=== PATIENT | female | born 1975 | race African-American/Black ===

== ENCOUNTER 2016-10-21 21:30 | Emergency (ER) | payer OTHER ==
[~2016-10-21] VITALS: Ht 165.1 cm; Wt 93.9 kg
[~2016-10-21 21:30] MED LIST: ABILIFY10 MG PO; ACETAMINOPHEN500 MG PO; ADVAIR HFA120 INHALA IH; ALBUTEROL SULF8.5 GM IH; ALBUTEROL0.63 MG/3 IH; ALPRAZOLAM2 MG PO; ATARAX,VISTARIL25 MG PO; ATARAX,VISTARIL50 MG PO; AVENTYL,PAMELOR10 MG PO; BACTRIM,SEPT1 TABLET PO; BENTYL20 MG PO; BUSPAR15 MG PO; BUTALB-APAP-CA1 EACH PO; CALCIUM 500 MG1 EACH PO; CELEBREX200 MG PO; CIPRO500 MG PO; CYMBALTA20 MG PO; CYMBALTA30 MG PO; DAILY VALUE1 EACH PO; DAILY VITE1 EAC1 PO; DILAUDID2 MG PO; DURAGESIC50 MCG TD; DURAGESIC75 MCG TD; ENDOCET 5-3251 EACH PO; FAMOTIDINE20 MG PO; FENTANYL1 EAC1 TD; FENTANYL1 EAC5 TD; FIORICET 50-301 EACH PO; FIORICET,ESG1 TABLET PO; FLEXERIL10 MG PO; FLOVENT 11120 INHALA IH; FLUOXETINE HCL40 MG PO; GABAPENTIN300 MG PO; KEFLEX500 MG PO; KLONOPIN1 MG PO; KRISTALOSE20 GM PO; LEVAQUIN750 MG PO; LIDODERM 5% P1 PATCH TD; MEDROL DOSEPAK4 MG PO; MORPHINE SULFAT15 M1 PO; MULTI-VITAMIN1 EAC4 PO; NAPROSYN-EC 37375 MG PO; NORCO 5/3251 TABLET PO; OXYCODONE HCL10 MG PO; OXYCODONE HCL5 MG PO; PAROXETINE HCL40 MG PO; PAXIL2 MG/ML PO; PAXIL40 MG PO; PERCOCET 10/1 TABLET PO; PERCOCET 5/31 TABLET PO; PHENERGAN-CODE120 ML PO; PRAZOSIN HCL1 MG PO; PREDNISONE10 MG PO; PREDNISONE20 MG PO; PROAIR HFA8.5 GM IH; PROVENTIL HFA6.7 GM IH; PROVENTIL,2.5 MG/3 M IH; PROVENTIL2.5 MG/3 M IH; PROZAC40 MG PO; ROBITUSSIN AC,T10 ML PO; ROXICODONE5 MG PO; TESSALON200 MG PO; THERAGRAN1 TABLET PO; TUMS500 MG PO; TYLENOL WITH C1 EACH PO; Tums,OsCal PO; VALIUM10 MG PO; VALIUM2 MG PO; VALIUM5 MG PO; VENTOLIN HFA18 GM IH; VITAMIN A A1 CAPSULE PO; VITAMIN D5000 UNIT PO; XANAX0.25 MG PO; XANAX2 MG PO; ZANTAC150 MG PO; ZANTAC300 MG PO; ZITHROMAX TRI-500 MG PO; ZITHROMAX Z-PA250 MG PO; ZOFRAN ODT4 MG PO; ZOFRAN ODT8 MG PO; ZOFRAN4 MG PO; ZOLPIDEM TARTRA10 MG PO; [UNRECOGNIZED DRUG - SUPPLY]
[2016-10-21 23:15] LABS: HEMATOCRIT 30.9 % (36.0-46.0); MCH 27.5 PG (29.0-34.0); MCHC 30.7 G/DL (30.0-36.0); MCV 89.3 FL (83-99); MEAN PLAT.VOLUME 10.3 uM^3 (9.5-12.4); PLATELET COUNT 326 K/uL (156-360); RBC DIS.WIDTH-CV 17.2 % (11.8-14.6); RBC DIS.WIDTH-SD 54.7 % (39-53); RED BLOOD COUNT 3.46 M/uL (3.80-5.20); WHITE BLOOD COUNT 8.7 K/uL (4.1-10.2)
[2016-10-21 23:22] LABS: CHLORIDE 113 mEq/L (99-109); POTASSIUM 4.2 mEq/L (3.7-5.4); SODIUM 139 mEq/L (136-147)
[2016-10-21 23:24] LABS: GLUCOSE 84 mg/dL (70-99)
[2016-10-21 23:26] LABS: ANION GAP 7 MEQ/L (2-14)
[2016-10-21 23:28] LABS: GFR ESTIMATE (CALCULATED) > 59 mL/min/
[2016-10-21 23:29] LABS: UREA NITROGEN (BUN) 7 mg/dL (9-23)
[2016-10-22] MEDS ORDERED: PREDNISONE10 MG PO (00:06)
[2016-10-22] MEDS ORDERED: VENTOLIN HFA18 GM IH (00:11)
[2016-10-22 00:31] VITALS: BP 119/75
== END 2016-10-22 00:33 | disposition home or self-care (01) ==
LOC: EXP 21:30 → EME 21:30 → EXP 10-22 00:33
PROVIDERS: Emergency Medicine
DX: J45.901 Unspecified asthma with (acute) exacerbation (principal); D64.9 Anemia, unspecified
CPT/HCPCS: 71020; 80048; 85027; 87502; 94640; 99281; 99285; J1100; J3475; J7030

== ENCOUNTER 2016-11-09 20:14 | Emergency (ER) | payer OTHER ==
[~2016-11-09] VITALS: Ht 160 cm; Wt 91.8 kg
[2016-11-09] MEDS ORDERED: FIORICET 50-301 EACH PO (21:51)
[2016-11-09 23:15] VITALS: BP 127/66
== END 2016-11-09 22:40 | disposition home or self-care (01) ==
LOC: EME 20:14
DX: G43.909 Migraine, unspecified, not intractable, without status migrainosus (principal); J45.909 Unspecified asthma, uncomplicated; G89.29 Other chronic pain; M17.0 Bilateral primary osteoarthritis of knee; F32.9 Major depressive disorder, single episode, unspecified; F41.9 Anxiety disorder, unspecified; Z98.84 Bariatric surgery status; Z96.652 Presence of left artificial knee joint; Z98.890 Other specified postprocedural states
CPT/HCPCS: 99281; 99284

== ENCOUNTER 2017-02-23 17:50 | Emergency (ER) | payer OTHER ==
[~2017-02-23] VITALS: Ht 160 cm; Wt 89.3 kg
[2017-02-23 20:42] VITALS: BP 123/76
== END 2017-02-23 20:43 | disposition home or self-care (01) ==
LOC: EME 17:50
DX: M25.561 Pain in right knee (principal); M25.562 Pain in left knee; Z96.652 Presence of left artificial knee joint; G89.29 Other chronic pain; M54.9 Dorsalgia, unspecified; M25.511 Pain in right shoulder
CPT/HCPCS: 73564; 99281; 99283; J1885

== ENCOUNTER 2017-03-29 18:39 | Emergency (ER) | payer OTHER ==
[~2017-03-29] VITALS: Ht 160 cm; Wt 85.3 kg
[2017-03-29] MEDS ORDERED: AMBIEN10 MG PO (18:51)
[2017-03-29] MEDS ORDERED: RIZATRIPTAN10 MG PO (18:52)
[2017-03-29 19:17] LABS: HEMATOCRIT 31.2 % (36.0-46.0); MCH 27.1 PG (29.0-34.0); MCHC 31.4 G/DL (30.0-36.0); MCV 86.2 FL (83-99); MEAN PLAT.VOLUME 9.9 uM^3 (9.5-12.4); PLATELET COUNT 268 K/uL (156-360); RBC DIS.WIDTH-CV 15.4 % (11.8-14.6); RBC DIS.WIDTH-SD 48.4 % (39-53); RED BLOOD COUNT 3.62 M/uL (3.80-5.20); WHITE BLOOD COUNT 12.8 K/uL (4.1-10.2)
[2017-03-29 19:28] LABS: CHLORIDE 111 mEq/L (99-109); POTASSIUM 3.7 mEq/L (3.7-5.4); SODIUM 136 mEq/L (136-147)
[2017-03-29 19:30] LABS: GLUCOSE 100 mg/dL (70-99)
[2017-03-29 19:31] LABS: ANION GAP 7 MEQ/L (2-14)
[2017-03-29 19:33] LABS: GFR ESTIMATE (CALCULATED) > 59 mL/min/
[2017-03-29 19:34] LABS: UREA NITROGEN (BUN) 4 mg/dL (9-23)
[2017-03-29 19:54] VITALS: BP 112/88
== END 2017-03-29 19:57 | disposition home or self-care (01) ==
LOC: EME 18:39
PROVIDERS: Physician Assistant Medical
DX: F11.23 Opioid dependence with withdrawal (principal); R55 Syncope and collapse; R51 Headache; R11.0 Nausea; R19.7 Diarrhea, unspecified; G89.29 Other chronic pain; Z96.652 Presence of left artificial knee joint; Z98.84 Bariatric surgery status; J45.909 Unspecified asthma, uncomplicated
CPT/HCPCS: 80048; 85027; 93005; 99281; 99284; J3010

== ENCOUNTER 2017-04-22 20:14 | Emergency (ER) | payer OTHER ==
[~2017-04-22] VITALS: Ht 160 cm; Wt 89.4 kg
[~2017-04-22 20:14] MED LIST changes: +AMBIEN10 MG PO; +RIZATRIPTAN10 MG PO
[2017-04-22 21:23] LABS: HEMATOCRIT 29.4 % (36.0-46.0); MCH 27.5 PG (29.0-34.0); MCHC 30.6 G/DL (30.0-36.0); MCV 89.9 FL (83-99); MEAN PLAT.VOLUME 9.6 uM^3 (9.5-12.4); PLATELET COUNT 317 K/uL (156-360); RBC DIS.WIDTH-CV 16.4 % (11.8-14.6); RBC DIS.WIDTH-SD 54.2 % (39-53); RED BLOOD COUNT 3.27 M/uL (3.80-5.20); WHITE BLOOD COUNT 9.3 K/uL (4.1-10.2)
[2017-04-22 21:34] LABS: CHLORIDE 111 mEq/L (99-109); POTASSIUM 4.2 mEq/L (3.7-5.4); SODIUM 136 mEq/L (136-147)
[2017-04-22 21:36] LABS: GLUCOSE 78 mg/dL (70-99)
[2017-04-22 21:37] LABS: ANION GAP 6 MEQ/L (2-14)
[2017-04-22 21:40] LABS: GFR ESTIMATE (CALCULATED) > 59 mL/min/; UREA NITROGEN (BUN) 6 mg/dL (9-23)
[2017-04-22 21:48] LABS: QUANTITATIVE HCG < 4.0 MIU/ML
[2017-04-22] MEDS ORDERED: ZITHROMAX Z-PA250 MG PO (22:38)
[2017-04-22 22:55] VITALS: BP 113/82
== END 2017-04-22 22:55 | disposition home or self-care (01) ==
LOC: RME 20:14 → EME 20:14 → RME 22:55
PROVIDERS: Physician Assistant
DX: J06.9 Acute upper respiratory infection, unspecified (principal); D64.9 Anemia, unspecified; J45.909 Unspecified asthma, uncomplicated; M17.0 Bilateral primary osteoarthritis of knee; F32.9 Major depressive disorder, single episode, unspecified; F41.9 Anxiety disorder, unspecified; Z98.84 Bariatric surgery status; Z96.652 Presence of left artificial knee joint; Z96.89 Presence of other specified functional implants
CPT/HCPCS: 71020; 80048; 84702; 85027; 93005; 94640; 99281; 99283

== ENCOUNTER 2017-04-24 13:20 | Inpatient (IN) | payer OTHER ==
[~2017-04-24] VITALS: Ht 160 cm; Wt 85.0 kg
[2017-04-24 14:10] LABS: HEMATOCRIT 35.2 % (36.0-46.0); MCH 27.2 PG (29.0-34.0); MCHC 30.4 G/DL (30.0-36.0); MCV 89.3 FL (83-99); MEAN PLAT.VOLUME 10.3 uM^3 (9.5-12.4); PLATELET COUNT 323 K/uL (156-360); RBC DIS.WIDTH-CV 16.3 % (11.8-14.6); RBC DIS.WIDTH-SD 53.7 % (39-53); WHITE BLOOD COUNT 8.9 K/uL (4.1-10.2)
[2017-04-24 14:12] LABS: RED BLOOD COUNT 3.94 M/uL (3.80-5.20)
[2017-04-24 14:20] LABS: CHLORIDE 109 mEq/L (99-109); POTASSIUM 4.7 mEq/L (3.7-5.4); SODIUM 135 mEq/L (136-147)
[2017-04-24 14:23] LABS: ANION GAP 10 MEQ/L (2-14)
[2017-04-24 14:25] LABS: GFR ESTIMATE (CALCULATED) > 59 mL/min/
[2017-04-24 14:26] LABS: UREA NITROGEN (BUN) 10 mg/dL (9-23)
[2017-04-24 14:28] LABS: GLUCOSE 126 mg/dL (70-99)
[2017-04-24 17:31] LABS: TROP-I INTERPRETATION NEGATIVE; TROPONIN-I 0.01 ng/mL (0.0-0.30)
[2017-04-24 18:28] LABS: TROP-I INTERPRETATION NEGATIVE; TROPONIN-I < 0.01 ng/mL (0.0-0.30)
[2017-04-24] MEDS ORDERED: FENTANYL1 EAC3 TD (18:47)
[2017-04-24] MEDS ORDERED: BUSPAR30 MG PO (18:59)
[2017-04-24 19:50] LABS: INFLUENZA A VIRAL ANTIGEN NEGATIVE; INFLUENZA B VIRAL ANTIGEN NEGATIVE
[2017-04-25 01:33] VITALS: BP 142/64
[2017-04-25 09:15] VITALS: BP 105/61; BP 115/58; BP 96/50
[2017-04-25 11:29] VITALS: BP 122/59
[2017-04-25 15:58] VITALS: BP 127/58
[2017-04-25 20:21] VITALS: BP 138/86
[2017-04-25 23:54] VITALS: BP 99/55
[2017-04-26 03:42] VITALS: BP 112/60
[2017-04-26 05:45] LABS: HEMATOCRIT 29.6 % (36.0-46.0); MCH 28.1 PG (29.0-34.0); MCHC 30.7 G/DL (30.0-36.0); MCV 91.4 FL (83-99); MEAN PLAT.VOLUME 10.5 uM^3 (9.5-12.4); PLATELET COUNT 328 K/uL (156-360); RBC DIS.WIDTH-CV 16.1 % (11.8-14.6); RBC DIS.WIDTH-SD 54.4 % (39-53); RED BLOOD COUNT 3.24 M/uL (3.80-5.20); WHITE BLOOD COUNT 17.9 K/uL (4.1-10.2)
[2017-04-26 06:09] LABS: ANION GAP 5 MEQ/L (2-14); CHLORIDE 105 MEQ/L (99-109); GFR ESTIMATE (CALCULATED) > 59 mL/min/; GLUCOSE 112 mg/dL (70-99); POTASSIUM 4.6 MEQ/L (3.7-5.4); SAMPLE HEMOLYSIS CHECK 0; SAMPLE ICTERIC CHECK 0; SAMPLE LIPEMIA CHECK 0; SODIUM 134 MEQ/L (136-147); UREA NITROGEN (BUN) 6 mg/dL (9-23)
[2017-04-26 07:37] VITALS: BP 95/49
[2017-04-26] MEDS ORDERED: PREDNISONE10 MG PO (09:58)
== END 2017-04-26 12:25 | disposition home or self-care (01) | DRG 202 ==
LOC: EME 13:20 → EDOF 04-25 00:06 → ENRESERV 04-25 00:10 → 5WEST 04-25 01:23
PROVIDERS: Hospitalist; Physician Assistant Medical
DX: J45.21 Mild intermittent asthma with (acute) exacerbation (principal); I95.1 Orthostatic hypotension; E66.9 Obesity, unspecified; E86.0 Dehydration; F32.9 Major depressive disorder, single episode, unspecified; F41.9 Anxiety disorder, unspecified; I48.91 Unspecified atrial fibrillation; J20.9 Acute bronchitis, unspecified; I47.1 Supraventricular tachycardia; Z98.84 Bariatric surgery status; J06.9 Acute upper respiratory infection, unspecified
CPT/HCPCS: 71020; 71275; 80048; 83605; 84443; 84484; 85027; 87040; 87502; 93005; 94640; 94640 76; 94760; 94799; 99202; 99281; 99285; J1200; J1650; J1885; J2765; J2930; J7030

== ENCOUNTER 2017-05-14 15:01 | Emergency (ER) | payer OTHER ==
[~2017-05-14] VITALS: Ht 160 cm; Wt 89.1 kg
[~2017-05-14 15:01] MED LIST changes: +BUSPAR30 MG PO; +FENTANYL1 EAC3 TD
[2017-05-14 15:21] LABS: POINT-OF-CARE METER ID UU13113778
[2017-05-14 15:52] LABS: MCH 27.4 PG (29.0-34.0); MCV 88.6 FL (83-99); PLATELET COUNT 385 K/uL (156-360); RBC DIS.WIDTH-CV 15.7 % (11.8-14.6); RBC DIS.WIDTH-SD 51.6 % (39-53); RED BLOOD COUNT 4.74 M/uL (3.80-5.20); WHITE BLOOD COUNT 8.3 K/uL (4.1-10.2)
[2017-05-14 16:02] LABS: CHLORIDE 108 mEq/L (99-109); POTASSIUM 3.9 mEq/L (3.7-5.4); SODIUM 138 mEq/L (136-147)
[2017-05-14 16:04] LABS: GLUCOSE 88 mg/dL (70-99)
[2017-05-14 16:05] LABS: ANION GAP 14 MEQ/L (2-14)
[2017-05-14 16:09] LABS: GFR ESTIMATE (CALCULATED) > 59 mL/min/; UREA NITROGEN (BUN) 7 mg/dL (9-23)
[2017-05-14 16:27] LABS: QUANTITATIVE HCG < 4.0 MIU/ML
[2017-05-14 16:28] LABS: TROP-I INTERPRETATION NEGATIVE; TROPONIN-I < 0.01 ng/mL (0.0-0.30)
[2017-05-14 21:09] LABS: ADD MIUA? YES; BILIRUBIN NEGATIVE; BLOOD NEGATIVE; COLOR YELLOW ((YELLOW)); GLUCOSE (STRIP) NEGATIVE; KETONES 80; LEUKOCYTES NEGATIVE; NITRITE NEGATIVE; PROTEIN (STRIP) NEGATIVE; SPECIFIC GRAVITY 1.018 (1.000-1.030)
[2017-05-14 21:11] LABS: BACTERIA RARE /HPF; EPITHELIAL CELLS 1+ /HPF; MUCUS TRACE /LPF; RED BLOOD CELLS 0-5 /HPF (0-5); WHITE BLOOD CELLS 0-5 /HPF (0-5)
[2017-05-14 22:29] VITALS: BP 121/64
== END 2017-05-14 22:30 | disposition home or self-care (01) ==
LOC: EME 15:01
PROVIDERS: Emergency Medicine
DX: E87.2 Acidosis (principal); E86.0 Dehydration; Z98.84 Bariatric surgery status; J45.909 Unspecified asthma, uncomplicated; F32.9 Major depressive disorder, single episode, unspecified; G43.909 Migraine, unspecified, not intractable, without status migrainosus; R56.9 Unspecified convulsions; F41.9 Anxiety disorder, unspecified; Z96.652 Presence of left artificial knee joint
CPT/HCPCS: 71020; 80048; 81003; 82948; 84484; 84702; 85027; 85379; 93005; 99281; 99285; J2405; J7030

== ENCOUNTER 2017-07-12 17:43 | Emergency (ER) | payer OTHER ==
[~2017-07-12] VITALS: Ht 160 cm; Wt 83.0 kg
[2017-07-12 17:48] VITALS: BP 122/85
== END 2017-07-12 18:10 | disposition left against medical advice (07) ==
LOC: EME 17:43
DX: F41.0 Panic disorder [episodic paroxysmal anxiety] (principal); Z53.21 Procedure and treatment not carried out due to patient leaving prior to being seen by health care provider

== ENCOUNTER 2017-09-21 19:24 | Emergency (ER) | payer OTHER ==
[~2017-09-21] VITALS: Ht 160 cm; Wt 96.8 kg
[2017-09-21] MEDS ORDERED: PREDNISONE20 MG PO (22:10)
[2017-09-21 23:16] VITALS: BP 139/81
== END 2017-09-21 23:19 | disposition home or self-care (01) ==
LOC: EME 19:24
DX: J45.901 Unspecified asthma with (acute) exacerbation (principal); J06.9 Acute upper respiratory infection, unspecified
CPT/HCPCS: 71045; 94644; 94645; 99281; 99285; J7512

== ENCOUNTER 2017-10-07 21:10 | Emergency (ER) | payer OTHER ==
[~2017-10-07] VITALS: Ht 160 cm; Wt 89.5 kg
[2017-10-07 21:42] VITALS: BP 106/75
== END 2017-10-07 21:20 | disposition left against medical advice (07) ==
LOC: EME 21:10
DX: T42.6X1A Poisoning by other antiepileptic and sedative-hypnotic drugs, accidental (unintentional), initial encounter (principal); Z53.21 Procedure and treatment not carried out due to patient leaving prior to being seen by health care provider

== ENCOUNTER 2017-10-26 11:35 | Emergency (ER) | payer OTHER ==
[~2017-10-26] VITALS: Ht 160 cm; Wt 86.3 kg
[2017-10-26 12:15] LABS: BASOPHIL (%) 0.2 % (0-1); EOSINOPHIL (%) 1.1 % (0-5); EOSINOPHIL COUNT 0.1 K/uL (0-0.3); HEMATOCRIT 37.7 % (36.0-46.0); HEMOGLOBIN 11.3 G/DL (11.9-15.5); IMMATURE GRANULOCYTE (%) 0.2 % (0.0-0.7); LYMPHOCYTE (%) 27.6 % (15-42); LYMPHOCYTE COUNT 3.3 K/uL (1.0-2.8); MCH 27.2 PG (29.0-34.0); MCV 90.8 FL (83-99); MONOCYTE (%) 6.2 % (3-12); MONOCYTE COUNT 0.8 K/uL (0-0.8); NEUTROPHIL (%) 64.7 % (45-76); NEUTROPHIL COUNT 7.8 K/uL (1.8-6.4); PLATELET COUNT 337 K/uL (156-360); RBC DIS.WIDTH-SD 52.9 % (39-53); RED BLOOD COUNT 4.15 M/uL (3.80-5.20); WHITE BLOOD COUNT 12.1 K/uL (4.1-10.2)
[2017-10-26 12:24] LABS: ALBUMIN 3.8 g/dL (3.2-4.8); CHLORIDE 108 mEq/L (99-109); MAGNESIUM 2.1 mg/dL (1.3-2.7); POTASSIUM 3.9 mEq/L (3.7-5.4); SODIUM 139 mEq/L (136-147)
[2017-10-26 12:26] LABS: GLUCOSE 125 mg/dL (70-99); TOTAL PROTEIN 7.5 g/dL (6.4-8.3)
[2017-10-26 12:28] LABS: TOTAL BILIRUBIN 0.6 mg/dL (0.0-1.0)
[2017-10-26 12:30] LABS: ALKALINE PHOSPHATASE 227 IU/L (3-129); CREATININE 0.8 mg/dL (0.6-1.3); GFR ESTIMATE (CALCULATED) > 59 mL/min/
[2017-10-26 12:31] LABS: AST (GOT) 26 IU/L (2-34); UREA NITROGEN (BUN) 7 mg/dL (9-23)
[2017-10-26 12:33] LABS: ALT (GPT) 14 IU/L (3-49)
[2017-10-26 12:40] LABS: QUANTITATIVE HCG < 4.0 MIU/ML
[2017-10-26 16:27] VITALS: BP 134/85
== END 2017-10-26 16:28 | disposition home or self-care (01) ==
LOC: EME 11:35
PROVIDERS: Emergency Medicine
DX: R55 Syncope and collapse (principal); T40.4X1A Poisoning by other synthetic narcotics, accidental (unintentional), initial encounter; S00.531A Contusion of lip, initial encounter; G89.29 Other chronic pain; M54.5 Low back pain; J45.909 Unspecified asthma, uncomplicated; F32.9 Major depressive disorder, single episode, unspecified; F41.9 Anxiety disorder, unspecified; Z98.84 Bariatric surgery status; R56.9 Unspecified convulsions; Z96.652 Presence of left artificial knee joint; Z88.5 Allergy status to narcotic agent; Z88.6 Allergy status to analgesic agent
CPT/HCPCS: 70450; 80053; 81003; 83735; 84702; 85025; 93005; 99281; 99284; J7040